=== PATIENT | male | born 1975 | race Caucasian/White ===

== ENCOUNTER 2018-05-07 11:38 | Emergency (ER) | payer SELFPAY ==
[2018-05-07] MEDS ORDERED: ONDANSETRON 4 MG/2 ML VIAL ONE (13:10)
[2018-05-07] MEDS ORDERED: NA CHLORIDE 0.9% 1,000 ML ONE (13:10)
[2018-05-07 13:14] LABS: Absolute Lymphocytes (CBC) 1.4 K/uL (0.7-4.9); Absolute Monocytes 0.6 K/uL (0.1-1.3); Absolute Neutrophil 3.5 K/uL (1.8-8.0); Basophils % 0.2 % (0-1.3); Eosinophils % 2.1 % (0-4.4); Hematocrit 40.2 % (39.6-49.0); Lymphocytes % 25.5 % (15.3-44.8); MCH 32.2 pg (27.0-35.0); MCV 91.7 fL (80-100); MPV 8.1 fL (7.6-11.3); Monocytes % 10.8 % (3.3-12.3); RBC Red Blood Cell Count 4.38 M/uL (4.33-5.43)
[2018-05-07 13:30] LABS: Albumin 3.7 g/dL (3.4-5.0); Bilirubin Direct 0.2 mg/dL (0-0.2); Bilirubin Total 0.9 mg/dL (0.2-1.0); Potassium 3.7 mmol/L (3.5-5.1)
[2018-05-07 13:51] LABS: Urine Blood TRACE (NEG); Urine Glucose NEGATIVE (NEG); Urine Protein NEGATIVE (NEG); Urine Specific Gravity 1.015 (1.005-1.030); Urine pH 5.5 (5.0-7.0)
--- NOTE | 2018-05-07 14:36 | RAD REPORT ---
EXAM DESCRIPTION: CTAbdomen Pelvis W Contrast - 05/07/2018 2:25 pm CLINICAL HISTORY: Abdominal pain. ABD PAIN COMPARISON: No comparisons TECHNIQUE: Biphasic CT imaging of the abdomen and pelvis was performed with 100 ml non-ionic IV cont rast. All CT scans are performed using dose optimization technique as appropriate and may include automated exposure control or mA/KV adjustment according to patient size. FINDINGS: The lung bases are clear. The liver demonstrates diffuse fatty infiltration. The spleen, pancreas, adrenal glands and kidneys a re within normal limits. No bowel obstruction, free air, free fluid or abscess. The appendix is normal. No evidence of signi ficant lymphadenopathy. No suspicious bony findings. IMPRESSION: No acute intra-abdominal or pelvic finding.
--- NOTE | 2018-05-07 15:49 | EDPHYS ---
Physician Documentation [facility] Name: Mariusz Pabon Age: 43 yrs Sex: Male : 1975 Arrival Date: 05/07/2018 Time: 11:41 Bed 25 Private MD: ED Physician Nevin Pineda HPI: 05/07 12:48 This 43 yrs old Male presents to ER via Ambulatory with complaints of ma2 Abdominal Pain. 12:48 The symptoms are located in the RLQ. Onset: The symptoms/episode began/occurred ma2 gradually, 2 day(s) ago. Associated signs and symptoms: Pertinent positives: abdominal pain, nausea, Pertinent negatives: constipation, dysuria, headache, incontinence, numbness. Severity of symptoms: At their worst the symptoms were moderate, in the emergency department the symptoms are unchanged. The patient has not experienced similar symptoms in the past. Historical: - Allergies: 12:00 Codeine; aj1 - Home Meds: 12:00 blood pressure medication [Active]; Allopurinol Oral [Active]; Chantix oral oral aj1 [Active]; - PMHx: 12:00 Gout; Hypertension; aj1 - PSHx: 12:00 Knee surgery; aj1 - Immunization history:: Flu vaccine is not up to date. - Social history:: Smoking status: Patient/guardian denies using tobacco, Patient/guardian denies using alcohol, street drugs, The patient lives with family. - Ebola Screening: : Patient denies travel to an Ebola-affected area in the 21 days before illness onset. - Family history:: not pertinent. ROS: 12:48 Constitutional: Negative for fever, chills, and weight loss, Neck: Negative for injury, ma2 pain, and swelling, Cardiovascular: Negative for chest pain, palpitations, and edema, Respiratory: Negative for shortness of breath, cough, wheezing, and pleuritic chest pain, Back: Negative for injury and pain, : Negative for injury, bleeding, discharge, and swelling, MS/Extremity: Negative for injury and deformity, Neuro: Negative for headache, weakness, numbness, tingling, and seizure. 12:48 Abdomen/GI: Positive for abdominal pain, nausea and vomiting, Negative for nausea, vomiting, and diarrhea, nausea, rectal pain, bowel incontinence. 12:48 All other systems are negative. Exam: 12:48 Constitutional: This is a well developed, well nourished patient who is awake, alert, ma2 and in no acute distress. ENT: Nares patent. No nasal discharge, no septal abnormalities noted. Tympanic membranes are normal and external auditory canals are clear. Oropharynx with no redness, swelling, or masses, exudates, or evidence of obstruction, uvula midline. Mucous membranes moist. Chest/axilla: Normal chest wall appearance and motion. Nontender with no deformity. No lesions are appreciated. Cardiovascular: Regular rate and rhythm with a normal S1 and S2. No gallops, murmurs, or rubs. Normal PMI, no JVD. No pulse deficits. Respiratory: Lungs have equal breath sounds bilaterally, clear to auscultation and percussion. No rales, rhonchi or wheezes noted. No increased work of breathing, no retractions or nasal flaring. MS/ Extremity: Pulses equal, no cyanosis. Neurovascular intact. Full, normal range of motion. Neuro: Awake and alert, GCS 15, oriented to person, place, time, and situation. Cranial nerves II-XII grossly intact. Motor strength 5/5 in all extremities. Sensory grossly intact. Cerebellar exam normal. Normal gait. 12:48 Abdomen/GI: Inspection: abdomen appears normal, Palpation: moderate abdominal tenderness, RLQ, rlq abd pain no guarding or rebound . Vital Signs: 12:00 BP 140 / 85; Pulse 80; Resp 18; Temp 97.2(TE); Pulse Ox 98% on R/A; Weight 104.33 kg 1 (R); Height 6 ft. 0 in. (182.88 cm) (R); Pain 8/10; 13:01 BP 135 / 81; Pulse 73; Resp 18; Pulse Ox 99% on R/A; Pain 8/10; ed1 13:48 BP 130 / 76; Pulse 62; Resp 18; Pulse Ox 99% on R/A; Pain 6/10; ed1 14:52 BP 131 / 79; Pulse 75; Pulse Ox 99% on R/A; rv 16:01 BP 124 / 86; Pulse 71; Pulse Ox 99% on R/A; rv 12:00 Body Mass Index 31.19 (104.33 kg, 182.88 cm) [facility] MDM: 12:20 Patient medically screened. ma2 12:48 Differential diagnosis: appendicitis diverticulitis vs GE and diarrhea. ma2 15:47 Data reviewed: vital signs, nurses notes. Data reviewed: EMS record, lab test ma2 result(s), EKG. Data interpreted:. Counseling: I had a detailed discussion with the patient and/or guardian regarding: the historical points, exam findings, and any diagnostic results supporting the discharge/admit diagnosis, the presence of at least one elevated blood pressure reading (>120/80) during this emergency department visit, the need for outpatient follow up. Response to treatment: There is no appreciated change of the patient's symptoms at this time. Response to treatment: There is no appreciated change of the patient's symptoms at this time, the patient's symptoms have markedly improved after treatment. 05/07 12:47 Order name: Basic Metabolic Panel; Complete Time: 14:23 ma2 05/07 12:47 Order name: CBC with Diff; Complete Time: 14:23 ma2 05/07 12:47 Order name: Creatinine for Radiology; Complete Time: 14:23 ma2 05/07 12:47 Order name: Hepatic Function; Complete Time: 14:23 ma2 05/07 12:47 Order name: Lipase; Complete Time: 14:23 ma2 05/07 12:56 Order name: Urine Dipstick--Ancillary (enter results); Complete Time: 14:23 bd 05/07 12:47 Order name: IV Saline Lock; Complete Time: 13:08 ma2 05/07 12:47 Order name: Labs collected and sent; Complete Time: 13:08 ma2 05/07 12:47 Order name: CT Abd/Pelvis - W/Contrast; Complete Time: 15:31 ma2 Administered Medications: 13:07 Drug: Zofran 4 mg Route: IVP; Site: left antecubital; ss 15:58 Follow up: Response: No adverse reaction rv 13:08 Drug: NS 0.9% 1000 ml Route: IV; Rate: 1 bolus; Site: left antecubital; ed1 15:58 Follow up: IV Status: Completed infusion rv Disposition: 05/07/18 15:48 Discharged to Home. Impression: Diarrhea, unspecified. - Condition is Stable. - Discharge Instructions: Diarrhea, Adult, Form - Return To Work. - Prescriptions for Zofran 4 mg Oral Tablet - take 1 tablet by ORAL route every 12 hours As needed; 20 tablet. - Medication Reconciliation Form, Thank You Letter, Antibiotic Education, Prescription Opioid Use, Work release form form. - Follow up: Private Physician; When: Tomorrow; Reason: Continuance of care. Signatures: Dispatcher [employer] EDVannessa Prince RN RN aj1 Kathrine Ramirez RN RN ss Tiera Sharp, STRATEGIC MARKETING LEADER STRATEGIC MARKETING LEADER ed1 Nevin Pineda MD MD ma2 Pramod Sexton RN RN rv Corrections: (The following items were deleted from the chart) 16:04 15:48 05/07/2018 15:48 Discharged to Home. Impression: Diarrhea, unspecified. Condition rv is Stable. Forms are Medication Reconciliation Form, Thank You Letter, Antibiotic Education, Prescription Opioid Use. Follow up: Private Physician; When: Tomorrow; Reason: Continuance of care. ma2
--- NOTE | 2018-05-07 15:49 | ER ---
Nurse's Notes [facility] Name: Mariusz Pabon Age: 43 yrs Sex: Male : 1975 Arrival Date: 05/07/2018 Time: 11:41 Bed 25 Private MD: Diagnosis: Diarrhea, unspecified Presentation: 05/07 11:57 Presenting complaint: Patient states: He started having diarrhea yesterday and upper aj1 right abdominal pain. Reports chills, and today his abdominal pain is worse. Reports nausea, poor appetite. Denies vomiting. Transition of care: patient was not received from another setting of care. Onset of symptoms was May 06, 2018. Risk Assessment: Do you want to hurt yourself or someone else? Patient reports no desire to harm self or others. Initial Sepsis Screen: Does the patient meet any 2 criteria? No. Patient's initial sepsis screen is negative. Does the patient have a suspected source of infection? Yes: Acute abdominal pain. Care prior to arrival: None. 11:57 Method Of Arrival: Ambulatory aj1 11:57 Acuity: DANIA 3 aj1 Triage Assessment: 12:00 General: Appears in no apparent distress. uncomfortable, Behavior is calm, cooperative, aj1 appropriate for age. Pain: Complains of pain in right upper quadrant Pain currently is 8 out of 10 on a pain scale. Aggravated by repositioning, walking. Neuro: Level of Consciousness is awake, alert, obeys commands. Cardiovascular: Patient's skin is warm and dry. Respiratory: Airway is patent Respiratory effort is even, unlabored, Respiratory pattern is regular, symmetrical. GI: Reports upper abdominal pain, diarrhea, nausea, Patient currently denies vomiting. Historical: - Allergies: 12:00 Codeine; aj1 - Home Meds: 12:00 blood pressure medication [Active]; Allopurinol Oral [Active]; Chantix oral oral aj1 [Active]; - PMHx: 12:00 Gout; Hypertension; aj1 - PSHx: 12:00 Knee surgery; aj1 - Immunization history:: Flu vaccine is not up to date. - Social history:: Smoking status: Patient/guardian denies using tobacco, Patient/guardian denies using alcohol, street drugs, The patient lives with family. - Ebola Screening: : Patient denies travel to an Ebola-affected area in the 21 days before illness onset. - Family history:: not pertinent. Screenin:02 Abuse screen: Denies threats or abuse. Denies injuries from another. Nutritional ed1 screening: No deficits noted. Tuberculosis screening: No symptoms or risk factors identified. Fall Risk No fall in past 12 months (0 pts). No secondary diagnosis (0 pts). IV access (20 points). Ambulatory Aid- None/Bed Rest/Nurse Assist (0 pts). Gait- Normal/Bed Rest/Wheelchair (0 pts) Mental Status- Oriented to own ability (0 pts). Total Stevenson Fall Scale indicates No Risk (0-24 pts). Assessment: 13:01 Reassessment: Patient appears in no apparent distress at this time. No changes from ed1 previously documented assessment. Patient and/or family updated on plan of care and expected duration. Pain level reassessed. Patient is alert, oriented x 3, equal unlabored respirations, skin warm/dry/pink. Pt finished oral contrast for CT Patient states symptoms have not improved. 13:48 Reassessment: Patient appears in no apparent distress at this time. No changes from ed1 previously documented assessment. Patient and/or family updated on plan of care and expected duration. Pain level reassessed. Patient is alert, oriented x 3, equal unlabored respirations, skin warm/dry/pink. Patient states feeling better. Patient states symptoms have improved. 14:51 Reassessment: RECEIVED PATIENT FROM [facility]. PATIENT IS AWAKE AND LYING ON BED. rv AWAITING DISPOSITION ORDERS. 16:03 GI: Bowel sounds present X 4 quads. Abd is soft and non tender Abd is non tender X 4 rv quads. Vital Signs: 12:00 BP 140 / 85; Pulse 80; Resp 18; Temp 97.2(TE); Pulse Ox 98% on R/A; Weight 104.33 kg aj1 (R); Height 6 ft. 0 in. (182.88 cm) (R); Pain 8/10; 13:01 BP 135 / 81; Pulse 73; Resp 18; Pulse Ox 99% on R/A; Pain 8/10; ed1 13:48 BP 130 / 76; Pulse 62; Resp 18; Pulse Ox 99% on R/A; Pain 6/10; ed1 14:52 BP 131 / 79; Pulse 75; Pulse Ox 99% on R/A; rv 16:01 BP 124 / 86; Pulse 71; Pulse Ox 99% on R/A; rv 12:00 Body Mass Index 31.19 (104.33 kg, 182.88 cm) aj1 ED Course: 11:41 Patient arrived in ED. rg4 11:59 Triage completed. aj1 12:00 Arm band placed on Patient placed in waiting room, Patient notified of wait time. aj1 12:19 Nevin Pineda MD is Attending Physician. ma2 12:25 Urine collected: clean catch specimen, clear, yee colored, Amount Voided: 100mL. jp3 12:30 Inserted saline lock: 20 gauge in left forearm, using aseptic technique. Blood rv collected. IV discontinued, bleeding controlled, No redness/swelling at site. Pressure dressing applied. 12:41 Placed in gown. Bed in low position. Call light in reach. Side rails up X 1. Warm jp3 blanket given. Pillow given. Pulse ox on. NIBP on. 13:01 Tiera Sharp LVN is Primary Nurse. ed1 13:[address] Scan. ed1 14:[address] via wheelchair. jg6 14:25 CT Abd/Pelvis - W/Contrast In Process Unspecified. EDMS 14:25 CT completed. Patient tolerated procedure well. Patient moved back from [facility] 15:59 No provider procedures requiring assistance completed. Inserted. rv Administered Medications: 13:07 Drug: Zofran 4 mg Route: IVP; Site: left antecubital; 15:58 Follow up: Response: No adverse reaction rv 13:08 Drug: NS 0.9% 1000 ml Route: IV; Rate: 1 bolus; Site: left antecubital; ed1 15:58 Follow up: IV Status: Completed infusion rv Outcome: 15:48 Discharge ordered by . ma2 16:03 Discharged to home ambulatory. rv 16:03 Condition: good 16:03 Discharge instructions given to patient, Instructed on discharge instructions, follow up and referral plans. medication usage, Demonstrated understanding of instructions, follow-up care, medications, Prescriptions given X 1. 16:04 Patient left the ED. rv Signatures: Dispatcher [employer] EDOH Vannessa James RN RN aj1 Kathrine Ramirez RN RN Tiera Sharp LVN LVN ed1 Kate Ibrahim rg4 Nevin Pineda MD MD ma2 Pramod Sexton, RN RN rv Reyes Quiñones jp3 Natalie [email or web address]
== END 2018-05-07 16:04 | disposition home or self-care (01) ==
LOC: ER 11:38
DX: R19.7 Diarrhea, unspecified (principal); I10 Essential (primary) hypertension; Z88.5 Allergy status to narcotic agent
CPT/HCPCS: 36415; 74177; 80048; 80076; 81003; 83690; 85025; 96361; 96374; 99284; J2405; J7030; Q9967